=== PATIENT | female | born 1960 | race Caucasian/White ===

== ENCOUNTER 2021-06-11 18:16 | Emergency (ER) | payer MEDICAID, SELFPAY ==
[2021-06-11 18:25] VITALS: BP 146/88; PULSE 109; TEMP 37.6; O2SAT 97; BMI 44.9
--- NOTE | 2021-06-11 18:25 | XRR_ITS ---
PROCEDURE INFORMATION: Exam: XR Right Ankle Exam date and time: 06/11/2021 6:25 PM Age: 60 years old Clinical indication: Pain; Ankle; Right TECHNIQUE: Imaging protocol: XR Right ankle. Views: 3 or more views. COMPARISON: No relevant prior studies available. FINDINGS: Bones/joints: Normal. Soft tissues: Normal. XR/XR ankle RT min 3V* [id number] IMPRESSION: No acute findings.
[2021-06-11 18:48] VITALS: BP 114/85; PULSE 115; RESP 21; O2SAT 97
--- NOTE | 2021-06-11 19:00 | XRR_ITS ---
PROCEDURE INFORMATION: Exam: XR Chest Exam date and time: 06/11/2021 7:00 PM Age: 60 years old Clinical indication: Shortness of breath; Additional info: SOB TECHNIQUE: Imaging protocol: XR of the chest. Views: 1 view. COMPARISON: CT abdomen pelvis w con* [id number] 07/31/2014 1:35 PM FINDINGS: Lungs: Mild left basilar atelectasis and/or infiltrate and/or effusion. Hyperaerated lungs consistent with COPD . Pleural spaces: Unremarkable. No pleural effusion. No pneumothorax. Heart/Mediastinum: Unremarkable. No cardiomegaly. Bones/joints: Unremarkable. XR/XR chest 1V portable [id number] IMPRESSION: 1. Mild left basilar atelectasis and/or infiltrate and/or effusion. 2. Hyperaerated lungs consistent with COPD .
--- NOTE | 2021-06-11 19:01 | ECG_ITS ---
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 Measurements Intervals [place] Rate: 123 P: 81 [place]: 149 QRS: -81 QRSD: 89 T: 89 QT: 312 QTc: 448 Interpretive Statements SINUS TACHYCARDIA WITH OCCASIONAL VENTRICULAR PREMATURE COMPLEXES LEFT AXIS DEVIATION [QRS AXIS < -30] POSSIBLE RIGHT VENTRICULAR CONDUCTION DELAY [RSR (QR) IN V1/V2] POSSIBLE ANTERIOR MYOCARDIAL INFARCTION , PROBABLY OLD [30 ms Q WAVE IN V3/V4, OR R < 0.2 mV IN V4] No previous ECG available for comparison Electronically Signed On 06-11-2021 20:53:42 FISH PEDDLER by Sukhdev Moser M.D. [id number]
--- NOTE | 2021-06-11 19:09 | ED_ITS ---
HPI - Extremity Problem General: Chief complaint: Extremity Problem,Nontraumatic Stated complaint: R ANKLE PAIN Time Seen by Provider: 06/11/21 18:34 Source: patient and EMS Mode of arrival: EMS Limitations: no limitations History of Present Illness: 60-year-old female who states that she been having right ankle pain since this morning states that she had no injury but it severely tender to touch pressure over the lateral portion states it is painful to try to walk. She she is also had some increasing shortness of breath has had a cough she is got a low-grade fever here with tachycardia. She had no vomiting or diarrhea. Associated symptoms: Reports fever(s); Deny chest pain or rash Review of Systems Const: Reports: fever(s), chills and body aches Eyes: Denies: blurry vision or eye discomfort ENMT: Denies: throat pain or dental pain Card: Denies: chest pain Resp: Reports: non-productive cough GI: Denies: abdominal pain, nausea, vomiting or diarrhea : Denies: dysuria Musc: Reports: extremity pain Skin/Breast: Denies: rash Neuro: Denies: headache(s) Psych: Denies: depression [place]/Lymph: Denies: easy bruising All/Imm: Denies: urticaria Physical Exam Const: COMMON NORMALS: no acute distress, patient oriented x3 and healthy appearing HENMT: COMMON NORMALS: normocephalic and atraumatic HEAD & SCALP: normocephalic and atraumatic Eye: COMMON NORMALS: Equal, round and reactive pupils present and EOMs intact bilaterally PUPIL: Yes Equal, round and reactive pupils present Neck/C-Spine: COMMON NORMALS: full ROM and supple Chest: COMMONS NORMALS: normal inspection of the chest and normal palpation of entire chest wall Resp: COMMON NORMALS: normal respiratory effort, No retractions, No use of accessory muscles and clear to auscultation bilaterally AUSCULTATION: clear to auscultation bilaterally Cardio: COMMON NORMALS: regular rate, regular rhythm and No murmurs present (Cardio) RATE: regular rate RHYTHM: regular rhythm GI: COMMON NORMALS: Normal to inspection, nondistended, normoactive bowel sounds present, Soft to palpation, non-tender and no masses PALPATION: Yes Soft to palpation Extremity: NARRATIVE EXTREMITY EXAM: Tenderness over right lateral ankle no warmness to touch does have some pain with range of motion. Neuro: COMMON NORMALS: patient oriented x3, moves all extremities and no focal motor deficits Psych: COMMON NORMALS: mental status grossly normal, Normal thought process present and cooperative THOUGHT PROCESS: Normal thought process present Skin: COMMON NORMALS: no rashes or lesions noted and no wounds GENERAL SKIN EXAM: no rashes or lesions noted Course Vital Signs: Vital signs: Vital Signs Temperature 98.4 F 06/11/21 21:55 Pulse Rate 114 H 06/11/21 21:55 Respiratory Rate 24 H 06/11/21 21:55 Blood Pressure 122/83 06/11/21 21:55 Pulse Oximetry 93 06/11/21 21:55 MDM - Extremity (Nontraumatic) Medical Decision Making Patient presents here with ankle pain along with a slight cough she does have a pneumonia she wears oxygen at baseline at home is not requiring any increased oxygen here. On exam she has minimal tenderness to her ankle no warmth to touch no signs of septic joint will start on doxycycline for her pneumonia will prescribe her pain meds she is to follow-up with PCP and return if worsening she understands agrees to plan. Lab Data : 06/11/21 20:15 06/11/21 20:15 Radiology Impressions Ankle X-Ray 06/11/21 18:25 IMPRESSION: No acute findings. Chest X-Ray 06/11/21 19:00 IMPRESSION: 1. Mild left basilar atelectasis and/or infiltrate and/or effusion. 2. Hyperaerated lungs consistent with COPD . Laboratory Results WBC 13.6 10^3/uL (4.0-10.0) H 06/11/21 20:15 RBC 4.47 10^6/uL (4.1-5.3) 06/11/21 20:15 Hgb 12.8 g/dL (11.5-15.3) 06/11/21 20:15 Hct 41.5 % (37.0-47.0) 06/11/21 20:15 MCV 92.8 fl (81-99) 06/11/21 20:15 MCH 28.6 pg (28.0-34.0) 06/11/21 20:15 MCHC 30.8 g/dL (30.0-36.0) 06/11/21 20:15 RDW 13.9 % (12.1-15.1) 06/11/21 20:15 Plt Count 198 10^3/cmm (130-400) 06/11/21 20:15 MPV 10.8 fL (7.4-10.4) H 06/11/21 20:15 Neut % (Auto) 76.5 % 06/11/21 20:15 Lymph % (Auto) 14.0 % 06/11/21 20:15 [place] % (Auto) 8.4 % 06/11/21 20:15 Eos % (Auto) 0.3 % 06/11/21 20:15 Baso % (Auto) 0.4 % 06/11/21 20:15 Neut # (Auto) 10.37 10^3/uL (1.8-7.7) H 06/11/21 20:15 Lymph # (Auto) 1.9 10^3/uL (0.8-4.8) 06/11/21 20:15 [place] # (Auto) 1.1 10^3/uL (0.2-0.9) H 06/11/21 20:15 Eos # (Auto) 0.0 10^3/uL (0.0-0.8) 06/11/21 20:15 Baso # (Auto) 0.1 10^3/uL (0.0-0.1) 06/11/21 20:15 Nucleated RBC % (auto) 0 % 06/11/21 20:15 Nucleated RBCs # 0.0 /100WBC 06/11/21 20:15 ESR 18 mm/hr (0-15) H 06/11/21 20:15 Sodium 143 mmol/L (136-145) 06/11/21 20:15 Sodium Cancelled 06/11/21 20:15 Potassium 3.7 mmol/L (3.5-5.1) 06/11/21 20:15 Potassium Cancelled 06/11/21 20:15 Chloride 105 mmol/L (98-107) 06/11/21 20:15 Chloride Cancelled 06/11/21 20:15 Carbon Dioxide 25 mmol/L (22-29) 06/11/21 20:15 Carbon Dioxide Cancelled 06/11/21 20:15 Anion Gap 16.7 (5-19) 06/11/21 20:15 Anion Gap Cancelled 06/11/21 20:15 BUN 9 mg/dL (8-23) 06/11/21 20:15 BUN Cancelled 06/11/21 20:15 Creatinine 0.6 mg/dL (0.5-0.9) 06/11/21 20:15 Creatinine Cancelled 06/11/21 20:15 GFR Calculation 101.6 mL/min (90-130) 06/11/21 20:15 GFR Calculation Cancelled 06/11/21 20:15 Glucose 89 mg/dL (65-115) 06/11/21 20:15 Glucose Cancelled 06/11/21 20:15 Calculated Osmolality 294 mOsm/kg (285-295) 06/11/21 20:15 Calculated Osmolality Cancelled 06/11/21 20:15 Lactic Acid 0.6 mmol/L (0.5-2.2) 06/11/21 20:15 Calcium 9.4 mg/dL (8.5-10.5) 06/11/21 20:15 Calcium Cancelled 06/11/21 20:15 Total Bilirubin 0.4 mg/dL (0.15-1.2) 06/11/21 20:15 Total Bilirubin Cancelled 06/11/21 20:15 AST 13 U/L (0-32) 06/11/21 20:15 AST Cancelled 06/11/21 20:15 ALT 11 U/L (0-33) 06/11/21 20:15 ALT Cancelled 06/11/21 20:15 Alkaline Phosphatase 73 IU/L (35-105) 06/11/21 20:15 Alkaline Phosphatase Cancelled 06/11/21 20:15 C-Reactive Protein 94.0 mg/L (0.0-4.9) H 06/11/21 20:15 C-Reactive Protein Cancelled 06/11/21 20:15 NT-Pro-B Natriuret Pep 162 pg/mL (0-125) H 06/11/21 20:15 NT-Pro-B Natriuret Pep Cancelled 06/11/21 20:15 Total Protein 5.9 g/dL (6.6-8.7) L 06/11/21 20:15 Total Protein Cancelled 06/11/21 20:15 Albumin 4.3 g/dL (3.5-5.2) 06/11/21 20:15 Albumin Cancelled 06/11/21 20:15 Globulin 1.6 g/dL (1.3-4.6) 06/11/21 20:15 Globulin Cancelled 06/11/21 20:15 SARS-CoV-2 Ag (Rapid) Negative (Negative) 06/11/21 20:15 EKG Data EKG 1: I personally reviewed and interpreted this EKG as follows: EKG interpretation date: 06/11/21 EKG interpretation time: 19:50 Interpretation: sinus tach hr [address] or t wave abnormalities qrs 89 qtc 385 Discharge Plan Discharge Patient Disposition: Home Clinical Impression: Ankle pain, right Pneumonia Qualifiers: Pneumonia type: due to unspecified organism Laterality: right Lung location: lower lobe of lung Qualified Code(s): J18.9 - Pneumonia, unspecified organism Condition: Stable Prescriptions: New hydrocodone-acetaminophen 5-325 mg tablet 1 tab PO Q6H PRN (Reason: pain) Qty: 14 0RF doxycycline hyclate 100 mg tablet 100 mg PO BID 7 Days Qty: 14 0RF Discharge Orders: Discharge ED (Routine); Ordered 06/11/21 Ordered By: Chacha Manzano Referrals: Elida Parekh DO [Primary Care Provider] - 1-3 days Discharge Diet: Advance as tolerated Discharge Activity: Resume usual activity Patient Instructions: Arthralgia (ED), Pneumonia (ED) Coding Level of Care Code ED Reverse Logistics Analyst for Chg Fwd Exam Comprehensive
[2021-06-11 19:46] VITALS: BP 124/90; PULSE 115; RESP 20; TEMP 36.9; O2SAT 96
[2021-06-11] MEDS: acetaminophen 500 mg Tablet 1000 MG PO (20:13)
[2021-06-11] MEDS: sodium chloride 0.9% 1,000 ML 999 ML IV (20:14)
[2021-06-11] MEDS: LORazepam 2 mg/mL INJ 1 mL 0.5 MG IVP (20:24)
[2021-06-11 20:36] LABS: Basophils # 0.1 10^3/uL (0.0-0.1); Basophils % 0.4 %; Eosinophils % 0.3 %; Hematocrit 41.5 % (37.0-47.0); Hemoglobin 12.8 g/dL (11.5-15.3); Lymphocytes # 1.9 10^3/uL (0.8-4.8); Mean Corpuscular HGB Conc 30.8 g/dL (30.0-36.0); Mean Corpuscular Hemoglobin 28.6 pg (28.0-34.0); Mean Corpuscular Volume 92.8 fl (81-99); Mean Platelet Volume 10.8 fL (7.4-10.4); Monocytes # 1.1 10^3/uL (0.2-0.9); Monocytes % 8.4 %; Neutrophils # 10.37 10^3/uL (1.8-7.7); Neutrophils % 76.5 %; Nucleated Red Blood Cells % 0 %; Platelet Count 198 10^3/cmm (130-400); Red Blood Count 4.47 10^6/uL (4.1-5.3); Red Cell Distribution Width 13.9 % (12.1-15.1); White Blood Count 13.6 10^3/uL (4.0-10.0)
[2021-06-11 20:47] LABS: Erythrocyte Sedimentation Rate 18 mm/hr (0-15)
[2021-06-11 20:55] LABS: SARS Covid-2 Antigen Negative (Negative)
[2021-06-11 21:15] LABS: Alanine Aminotransferase 11 U/L (0-33); Albumin Level 4.3 g/dL (3.5-5.2); Alkaline Phosphatase 73 IU/L (35-105); Anion Gap 16.7 (5-19); Aspartate Amino Transferase 13 U/L (0-32); Blood Urea Nitrogen 9 mg/dL (8-23); Calcium 9.4 mg/dL (8.5-10.5); Carbon Dioxide 25 mmol/L (22-29); Chloride 105 mmol/L (98-107); Globulin 1.6 g/dL (1.3-4.6); Glomerular Filtration Rate 101.6 mL/min (90-130); Glucose 89 mg/dL (65-115); Osmolality Calculated 294 mOsm/kg (285-295); Potassium 3.7 mmol/L (3.5-5.1); Sodium 143 mmol/L (136-145); Total Bilirubin 0.4 mg/dL (0.15-1.2); Total Protein 5.9 g/dL (6.6-8.7)
[2021-06-11 21:18] LABS: Lactic Sepsis W/Reflex 0.6 mmol/L (0.5-2.2)
[2021-06-11 21:43] LABS: NT Pro B Type Natriuretic Pept 162 pg/mL (0-125)
[2021-06-11 21:51] VITALS: RESP 20
[2021-06-11] MEDS: morphine 4 mg/mL SDV 1 mL IVP (21:51)
[2021-06-11 21:55] VITALS: BP 122/83; PULSE 114; RESP 24; TEMP 36.9; O2SAT 93
[2021-06-11 22:29] VITALS: BP 121/84; PULSE 109; RESP 24; TEMP 36.9; O2SAT 92
== END 2021-06-11 22:32 | disposition home or self-care (01) ==
PROVIDERS: Family Medicine; Emergency Provider Emergency Medicine; PCP Family Medicine
DX: M25.571 Pain in right ankle and joints of right foot (principal); J18.9 Pneumonia, unspecified organism; Z20.822 Contact with and (suspected) exposure to COVID-19
CPT/HCPCS: 71045; 73610; 80053; 83605; 83880; 85025; 85651; 86140; 87426; 93005; 96361; 96374; 96375; 99284; J2060; J2270; J7030

== ENCOUNTER 2023-04-19 16:31 | Inpatient (IN) | payer MEDICAID, SELFPAY ==
[2023-04-19 16:32] VITALS: BP 130/72; PULSE 104; TEMP 36.6; O2SAT 98; BMI 33.4
--- NOTE | 2023-04-19 17:01 | XRR_ITS ---
PROCEDURE INFORMATION: Exam: XR Left Hip Exam date and time: 04/19/2023 5:53 PM Age: 62 years old Clinical indication: Left hip; Patient HX: Lt hip pain with ambulation post fall TECHNIQUE: Imaging protocol: Radiologic exam of the left hip. Views: 2 or 3 views hip with pelvis when performed. COMPARISON: No relevant prior studies available. FINDINGS: Bones/joints: No fracture or dislocation. Mild degenerative changes. Soft tissues: No acute findings. XR/XR hip LT 2-3V wo/w pel* [id number] IMPRESSION: No acute findings.
--- NOTE | 2023-04-19 17:01 | XRR_ITS ---
PROCEDURE INFORMATION: Exam: XR Right Foot Exam date and time: 04/19/2023 5:53 PM Age: 62 years old Clinical indication: Right; Patient HX: RT mid foot pain post fall TECHNIQUE: Imaging protocol: Radiologic exam of the right foot. Views: 3 or more views. COMPARISON: No relevant prior studies available. FINDINGS: Bones/joints: No fracture or dislocation. Degenerative changes. Soft tissues: No acute findings. XR/XR foot RT min 3V* [id number] IMPRESSION: No acute findings.
--- NOTE | 2023-04-19 17:02 | ECG_ITS ---
[facility] Test Date: 2023-04-19 Pat Name: Milagro Knowles Department: Room: Gender: Female Regional Facilities Manager: : 1960 Requested By: Yue Foley Order Number: [id number] Karen MD: Zohra Kennedy M.D. Measurements Intervals [place] Rate: 99 P: 0 [place]: 0 QRS: -34 QRSD: 164 T: 25 QT: 432 QTc: 557 Interpretive Statements Possible atrial fibrillation with controlled ventricular rate. Heavy baseline artifact Defective EKG, need to repeat Electronically Signed On 04-19-2023 19:47:10 [employer]HAB CONSULTANT by Zohra Kennedy M.D. [email or web address]
--- NOTE | 2023-04-19 17:20 | CTR_ITS ---
PROCEDURE INFORMATION: Exam: CT Head Without Contrast Exam date and time: 04/19/2023 5:51 PM Age: 62 years old Clinical indication: Altered mental status/memory loss; Patient HX: EMS arrival for visual hallucinations; Additional info: AMS TECHNIQUE: Imaging protocol: Computed tomography of the head without contrast. Radiation optimization: All CT scans at this facility use at least one of these dose optimization techniques: automated exposure control; mA and/or kV adjustment per patient size (includes targeted exams where dose is matched to clinical indication); or iterative reconstruction. REPORTING DATA: Count of CT and Cardiac NM exams in prior 12 months: This patient has received 0 known CTs and 0 known cardiac nuclear medicine studies in the 12 months prior to the current study. COMPARISON: No relevant prior studies available. RADIATION DOSE METRICS: Total DLP (mGy-cm): 979.96 FINDINGS: Brain: No hemorrhage. Chronic white matter and senescent changes. Cerebral ventricles: No ventriculomegaly. Paranasal sinuses: Visualized sinuses are grossly clear. Mastoid air cells: No mastoid effusion. Bones/joints: No acute findings. Soft tissues: No acute findings. CT/CT head wo con* [id number] IMPRESSION: No acute intracranial abnormality. Chronic white matter and senescent changes.
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
[2023-04-19 17:25] LABS: Add Urine Microscopic? NO; Charge for UA Resulting for Rev
[2023-04-19 17:27] LABS: Blood Gas Operator Identificat AMH; Blood Gas Sample Site Not specified; Blood Gas Sample Type Venous; HCO3 VBG 27.1 mmol/L (24-28); Oxygen Device NC; PCO2 VBG 38.9 mmHg (41-51); PO2 VBG 39.6 mmHg (25-40); Venous Blood Gas Hematocrit 32.8 % (37-47); pH VBG 7.45 (7.32-7.42)
[2023-04-19] MEDS: magnesium sulfate premix 4 GM/100 ML PREMIX IV (17:28)
[2023-04-19 17:35] LABS: Bilirubin Urine Neg (Negative); Blood Urine Neg (Negative); Glucose Urine UA Norm (Normal); Ketones Urine Negative (Negative); Nitrate Urine Negative (Negative); Protein Urine Neg (Negative); Urine Appearance Clear (CLEAR); Urine Color Yellow (Yellow); pH Urine 7 (5-7)
[2023-04-19 17:36] LABS: Leukocyte Esterase Urine Negative (Negative); Urobilinogen Urine Norm (Negative)
[2023-04-19 17:38] LABS: Basophils % 0.5 %; Eosinophils # 0.2 10^3/uL (0.0-0.8); Eosinophils % 2.6 %; Hematocrit 33.3 % (36-47); Lymphocytes # 1.7 10^3/uL (0.8-4.8); Lymphocytes % 29.8 %; Mean Corpuscular HGB Conc 30.3 g/dL (30-55); Mean Corpuscular Hemoglobin 27.3 pg (27-33); Mean Platelet Volume 10.5 fL (7.4-10.4); Monocytes # 0.5 10^3/uL (0.2-0.9); Monocytes % 9.2 %; Neutrophils # 3.36 10^3/uL (1.8-7.7); Neutrophils % 57.6 %; Nucleated Red Blood Cells % 0 %; Platelet Count 144 10^3/cmm (157-399); Red Cell Distribution Width 15.6 % (12.1-15.1); White Blood Count 5.84 10^3/uL (3.29-11.43)
[2023-04-19 17:39] VITALS: PULSE 110; RESP 22; O2SAT 92
[2023-04-19 17:58] LABS: Lactic Sepsis W/Reflex 0.6 mmol/L (0.5-2.2)
[2023-04-19 17:59] LABS: Troponin(5th) Baseline 23 ng/L (0-10)
[2023-04-19 18:09] LABS: Procalcitonin 0.23 ng/mL (0-0.5); Thyroid Stimulating Hormone 0.41 uIU/mL (0.27-4.20)
[2023-04-19] MEDS: acetaminophen 1,000 MG/100 ML PIGGYBACK 400 MG IV (18:20)
[2023-04-19 18:21] LABS: Alanine Aminotransferase 8 U/L (0-33); Alkaline Phosphatase 78 U/L (35-105); Aspartate Amino Transferase 13 U/L (0-32); Blood Urea Nitrogen 8 mg/dL (8-23); Carbon Dioxide 25 mmol/L (22-29); Chloride 105 mmol/L (98-107); Globulin 1.8 g/dL (1.3-4.6); Glomerular Filtration Rate 124.6 mL/min (90-130); Glucose 91 mg/dL (65-115); Magnesium 1.9 mg/dL (1.7-2.3); Osmolality Calculated 288 mOsm/kg (285-295); Sodium 140 mmol/L (136-145); Total Bilirubin 0.3 mg/dL (0.15-1.2); Total Protein 5.8 g/dL (6.6-8.7)
[2023-04-19 19:00] VITALS: BP 143/81; PULSE 94; RESP 22; O2SAT 96
[2023-04-19 19:21] LABS: Amphetamines Screen Urine Negative (Negative); Barbiturates Screen Urine Negative (Negative); Benzodiazepines Screen Urine Positive (Negative); Cocaine Screen Urine Negative (Negative); Opiate Screen Urine Negative (Negative); PCP Screen Urine Negative (Negative); THC Screen Urine Negative (Negative)
[2023-04-19 19:46] LABS: SARS Covid-2 Antigen Negative (Negative)
[2023-04-19 20:13] LABS: Troponin 5 2HR 23.89 ng/L (0-10); Troponin 5 2HR Delta 0.89 ABS# (0-10)
[2023-04-19 22:00] VITALS: BP 130/80; PULSE 102; RESP 18; TEMP 36.4; O2SAT 92
[2023-04-19 23:38] LABS: Influenza A by IFA negative (Negative); Influenza B by IFA negative (Negative)
[2023-04-19] MEDS: rivaroxaban 10 mg Tablet 20 MG PO (23:59)
[2023-04-20] VITALS (9 sets, daily range): BP systolic 122–146; BP diastolic 82–84; PULSE 78–106; RESP 16–20; TEMP 36.7–36.8; O2SAT 3–100
[2023-04-20] MEDS: oxyCODONE-APAP 5-325 mg Tablet 1 TAB PO ×3 (00:04→18:23)
[2023-04-20 00:58] LABS: Troponin 5 6HR 24.58 ng/L (0-10); Troponin 5 6HR Delta 1.58 ng/L (0-12)
[2023-04-20 06:49] LABS: Basophils % 0.7 %; Eosinophils # 0.2 10^3/uL (0.0-0.8); Eosinophils % 3.9 %; Lymphocytes # 1.6 10^3/uL (0.8-4.8); Mean Corpuscular HGB Conc 30.6 g/dL (30-55); Mean Corpuscular Hemoglobin 27.4 pg (27-33); Mean Corpuscular Volume 89.7 fl (85-98); Mean Platelet Volume 10.2 fL (7.4-10.4); Monocytes # 0.7 10^3/uL (0.2-0.9); Monocytes % 11.7 %; Neutrophils # 3.33 10^3/uL (1.8-7.7); Neutrophils % 56.5 %; Nucleated Red Blood Cells % 0 %; Platelet Count 152 10^3/cmm (157-399); Red Blood Count 3.68 10^6/uL (3.85-5.65); Red Cell Distribution Width 15.6 % (12.1-15.1); White Blood Count 5.89 10^3/uL (3.29-11.43)
[2023-04-20 06:55] LABS: Anion Gap 11.5 (5-19); Blood Urea Nitrogen 8 mg/dL (8-23); Calcium 9.1 mg/dL (8.5-10.5); Carbon Dioxide 27 mmol/L (22-29); Chloride 107 mmol/L (98-107); Glomerular Filtration Rate 124.6 mL/min (90-130); Glucose 90 mg/dL (65-115); Osmolality Calculated 290 mOsm/kg (285-295); Potassium 4.5 mmol/L (3.5-5.1); Sodium 141 mmol/L (136-145)
[2023-04-20] MEDS: hyDROXYzine 25 mg Capsule 50 MG PO ×2 (08:24→19:44)
[2023-04-20] MEDS: cetirizine 10 mg Tablet PO (08:24)
[2023-04-20] MEDS: methocarbamol 750 mg Tablet PO ×3 (08:24→19:45)
[2023-04-20] MEDS: famotidine 20 mg Tablet PO (08:24)
--- NOTE | 2023-04-20 08:31 | PC.NURSE ---
refused scheduled Xarelto, stated she takes it at 5 pm with supper
--- NOTE | 2023-04-20 09:06 | PC.NURSE ---
prn Vistaril 50 mg given po per pt c/o stated anxiety, anxious about being here on the unit. 1:1 with sitter currently
[2023-04-20] MEDS: OLANZapine 5 mg ODT PO (12:41)
--- NOTE | 2023-04-20 12:50 | PC.NURSE ---
prn Zyprexa Zydis Zyprexa Zydis 5 mg given po sublingual per pt c/o further anxiety/visual hallucinations. stated she thought she was poop on the floor but staff assured patient there were no feces on floor.
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
[2023-04-20] MEDS: rivaroxaban 10 mg Tablet 20 MG PO (18:20)
[2023-04-20] MEDS: OLANZapine 5 mg ODT 2.5 MG PO (19:45)
[2023-04-20] MEDS: trazodone 50 mg Tablet PO (19:45)
[2023-04-20] MEDS: levalbuterol 1.25 mg/3 mL Neb INHALATION (19:50)
[2023-04-21 06:00] VITALS: BP 120/80; PULSE 99; RESP 16; TEMP 37.2; O2SAT 90
[2023-04-21 06:08] VITALS: RESP 20; O2SAT 90
[2023-04-21] MEDS: oxyCODONE-APAP 5-325 mg Tablet 1 TAB PO (06:08)
[2023-04-21] MEDS: roflumilast 500 mcg Tablet PO (07:55)
[2023-04-21] MEDS: famotidine 20 mg Tablet PO (07:55)
[2023-04-21] MEDS: cetirizine 10 mg Tablet PO (07:56)
[2023-04-21] MEDS: methocarbamol 750 mg Tablet PO (07:56)
[2023-04-21] MEDS: efferdent effervescent 1 EACH DENTAL (11:08)
[2023-04-21 11:46] VITALS: RESP 20; O2SAT 90
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
== END 2023-04-21 13:55 | disposition home or self-care (01) | DRG 125 ==
LOC: ER 20:33 → NP 20:55
PROVIDERS: Physician Assistant; Admitting Provider Psychiatry & Neurology Psychiatry; Emergency Provider Internal Medicine; PCP Family Medicine; Visit Provider Psychiatry & Neurology Psychiatry
DX: R44.1 Visual hallucinations (principal); F41.9 Anxiety disorder, unspecified; J44.9 Chronic obstructive pulmonary disease, unspecified; Z99.81 Dependence on supplemental oxygen; M25.551 Pain in right hip; K21.9 Gastro-esophageal reflux disease without esophagitis; Z86.718 Personal history of other venous thrombosis and embolism; Z81.1 Family history of alcohol abuse and dependence
CPT/HCPCS: 36415; 70450; 73502; 73630; 80048; 80053; 80306; 81003; 82803; 83605; 83735; 84145; 84443; 84484; 85025; 87040; 87426; 87804; 93005; 94640; 94664; 96365; 96375; 97165; 99285; J0131; J3475; J7614